=== PATIENT | female | born 1970 | race African-American/Black ===

== ENCOUNTER → 2016-06-26 | Outpatient (REF) | payer OTHER ==
[2016-06-28 00:08] LABS: %CD3+CD4+CD8+ 1.7 % (Not Estab.); %CD3+CD4-CD8+ 50.7 % (Not Estab.); %CD3+CD4-CD8- 3.1 % (Not Estab.); ABS CD3+CD4+CD8+ 49 /uL (Not Estab.); ABS CD3+CD4+CD8- 522 /uL (Not Estab.); ABS CD3+CD4-CD8+ 1470 /uL (Not Estab.); ABS CD3+CD4-CD8- 90 /uL (Not Estab.); CD4/CD8 NYSDOH RATIO 0.36 (Not Estab.); Eosinophils 2 % (.); HCT 34.4 % (34.0-46.6); Monocytes 9 % (.); Neutrophils 35 % (.); WBC 5.5 x10E3/uL (3.4-10.8)
== END ==
LOC: M SFHCPLAZ 10:38
PROVIDERS: ATTEND Internal Medicine Infectious Disease
DX: Z13.220 Encounter for screening for lipoid disorders (principal); B20 Human immunodeficiency virus [HIV] disease

== ENCOUNTER → 2016-12-11 | Outpatient (REF) | payer OTHER ==
[2016-12-11 14:16] LABS: ALBUMIN 3.7 GM/DL (3.2-5.2); ALBUMIN/GLOBULIN RATIO 1.09 (1.00-1.93); ALKALINE PHOSPHATASE 55 U/L (45-117); ALT/SGPT 15 U/L (12-78); ANION GAP 5 MEQ/L (8-16); AST/SGOT 7 U/L (15-37); BILIRUBIN,TOTAL 0.7 MG/DL (0.2-1.0); BLOOD UREA NITROGEN 11 MG/DL (7-18); CALCIUM LEVEL 9.1 MG/DL (8.5-10.1); CARBON DIOXIDE LEVEL 28 MEQ/L (21-32); CHLORIDE LEVEL 107 MEQ/L (98-107); CREATININE FOR GFR 1.08 MG/DL (0.55-1.02); GLOMERULAR FILTRATION RATE > 60.0 (>58); GLUCOSE, FASTING 87 MG/DL (70-105); POTASSIUM SERUM 4.3 MEQ/L (3.5-5.1); SODIUM LEVEL 140 MEQ/L (136-145); TOTAL PROTEIN 7.1 GM/DL (6.4-8.2)
[2016-12-12 14:14] LABS: %CD3+CD4+CD8+ 2.1 % (Not Estab.); %CD3+CD4+CD8- 21.2 % (Not Estab.); %CD3+CD4-CD8+ 47.4 % (Not Estab.); ABS CD3+CD4+CD8+ 61 /uL (Not Estab.); ABS CD3+CD4+CD8- 615 /uL (Not Estab.); ABS CD3+CD4-CD8+ 1375 /uL (Not Estab.); ABS CD3+CD4-CD8- 87 /uL (Not Estab.); CD4/CD8 NYSDOH RATIO 0.45 (Not Estab.); Eosinophils 2 % (.); Monocytes 10 % (.); Neutrophils 37 % (.); WBC 5.8 x10E3/uL (3.4-10.8)
== END ==
LOC: M SFHCPLAZ 10:27
PROVIDERS: ATTEND Internal Medicine Infectious Disease
DX: B20 Human immunodeficiency virus [HIV] disease (principal)

== ENCOUNTER → 2017-05-01 | Outpatient (REF) | payer OTHER ==
[2017-05-01 12:19] LABS: ALBUMIN 3.7 GM/DL (3.2-5.2); ALBUMIN/GLOBULIN RATIO 1.06 (1.00-1.93); ALKALINE PHOSPHATASE 46 U/L (45-117); ALT/SGPT 19 U/L (12-78); ANION GAP 8 MEQ/L (8-16); AST/SGOT 15 U/L (7-37); BILIRUBIN,TOTAL 0.3 MG/DL (0.2-1.0); BLOOD UREA NITROGEN 10 MG/DL (7-18); CALCIUM LEVEL 9.1 MG/DL (8.5-10.1); CARBON DIOXIDE LEVEL 26 MEQ/L (21-32); CHLORIDE LEVEL 109 MEQ/L (98-107); CHOLESTEROL LEVEL 223 MG/DL (<200); CREATININE FOR GFR 1.14 MG/DL (0.55-1.02); GLOMERULAR FILTRATION RATE > 60.0 (>58); GLUCOSE, FASTING 86 MG/DL (70-105); POTASSIUM SERUM 4.2 MEQ/L (3.5-5.1); SODIUM LEVEL 143 MEQ/L (136-145); TOTAL PROTEIN 7.2 GM/DL (6.4-8.2); TRIGLYCERIDES LEVEL 196 MG/DL (<150)
[2017-05-04 00:08] LABS: Eosinophils 2 % (Not Estab.); HCT 33.9 % (34.0-46.6); HGB 10.8 g/dL (11.1-15.9); Monocytes 10 % (Not Estab.); Neutrophils 46 % (Not Estab.)
== END ==
LOC: M SFHCPLAZ 09:14
PROVIDERS: ATTEND Internal Medicine Infectious Disease
DX: B20 Human immunodeficiency virus [HIV] disease (principal)

== ENCOUNTER → 2018-06-06 | Outpatient (REF) | payer OTHER ==
[2018-06-06 13:57] LABS: AMORPHOUS SEDIMENT SMALL (NEGATIVE); APPEARANCE, URINE CLEAR (CLEAR); BACTERIA, URINE AUTO NEGATIVE (NEGATIVE); BILIRUBIN, URINE AUTO NEGATIVE (NEGATIVE); BLOOD, URINE BLOOD 2+ (NEGATIVE); COLOR, URINE YELLOW (YELLOW); GLUCOSE, URINE (UA) AUTO NEGATIVE (NEGATIVE); KETONE, URINE AUTO NEGATIVE (NEGATIVE); LEUKOCYTE ESTERASE, URINE AUTO NEGATIVE (NEGATIVE); MUCUS, URINE SMALL (NEGATIVE); NITRITE, URINE AUTO NEGATIVE (NEGATIVE); PROTEIN, URINE AUTO NEGATIVE (NEGATIVE); RBC, URINE AUTO 12 /HPF (0-3); SPECIFIC GRAVITY URINE AUTO 1.014 (1.002-1.035); SQUAMOUS EPITHELIAL CELL UR AU 1 /HPF (0-6); UROBILINOGEN, URINE AUTO 0.2 mg/dL (0.0-2.0); WBC, URINE AUTO 1 /HPF (0-3)
[2018-06-06 14:34] LABS: ALBUMIN 3.9 GM/DL (3.2-5.2); ALT/SGPT 18 U/L (12-78); BILIRUBIN,TOTAL 0.8 MG/DL (0.2-1.0); BLOOD UREA NITROGEN 11 MG/DL (7-18); CALCIUM LEVEL 9.3 MG/DL (8.5-10.1); CARBON DIOXIDE LEVEL 26 MEQ/L (21-32); CHLORIDE LEVEL 105 MEQ/L (98-107); CHOLESTEROL LEVEL 232 MG/DL (<200); CHOLESTEROL RISK RATIO 2.829 (<5); CREATININE FOR GFR 1.12 MG/DL (0.55-1.30); GLOMERULAR FILTRATION RATE > 60.0 (>58); GLUCOSE, FASTING 85 MG/DL (70-100); HDL CHOLESTEROL 82 MG/DL (>40); IRON (FE) 24 UG/DL (50-170); LDL CHOLESTEROL 129 MG/DL (<100); NON-HDL-C 150 MG/DL; PERCENT SATURATION 5.5 % (13.2-45.0); POTASSIUM SERUM 4.2 MEQ/L (3.5-5.1); SODIUM LEVEL 139 MEQ/L (136-145); TOTAL IRON BINDING CAPACITY 436 UG/DL (250-450); TOTAL PROTEIN 7.5 GM/DL (6.4-8.2); TRIGLYCERIDES LEVEL 105 MG/DL (<150)
[2018-06-11 00:07] LABS: % CD8 Pos Lymph 47.7 % (12.0-35.5); ABS Eosinophils 0.1 x10E3/uL (0.0-0.4); ABS Lymphs 2.4 x10E3/uL (0.7-3.1); ABS Monocytes 0.4 x10E3/uL (0.1-0.9); ABS Neutophils 1.9 x10E3/uL (1.4-7.0); Abs CD4 Helper 600 /uL (359-1519); Abs CD8 Suppres 1145 /uL (109-897); CD4/CD8 Ratio 0.52 (0.92-3.72); Eosinophils 2 % (Not Estab.); HCT 29.8 % (34.0-46.6); HGB 8.9 g/dL (11.1-15.9); HIV-1 RNA PCR QUANT 2 LC550285 <20 copies/mL (.); Immature Grans 0 % (Not Estab.); Lymphocytes 51 % (Not Estab.); MCH 20.4 pg (26.6-33.0); MCHC 29.9 g/dL (31.5-35.7); MCV 68 fL (79-97); Monocytes 8 % (Not Estab.); Neutrophils 39 % (Not Estab.); Platelets 365 x10E3/uL (150-379); RBC 4.36 x10E6/uL (3.77-5.28); RDW 23.5 % (12.3-15.4); WBC 4.7 x10E3/uL (3.4-10.8)
== END ==
LOC: M SFHCPLAZ 12:16
PROVIDERS: ATTEND Internal Medicine Infectious Disease
DX: B20 Human immunodeficiency virus [HIV] disease (principal); N92.1 Excessive and frequent menstruation with irregular cycle; E78.00 Pure hypercholesterolemia, unspecified

== ENCOUNTER → 2018-11-26 | Outpatient (REF) | payer OTHER ==
[2018-11-26 13:41] LABS: ALBUMIN 3.8 GM/DL (3.2-5.2); ALT/SGPT 19 U/L (12-78); BILIRUBIN,TOTAL 0.7 MG/DL (0.2-1.0); BLOOD UREA NITROGEN 10 MG/DL (7-18); CARBON DIOXIDE LEVEL 29 MEQ/L (21-32); CHLORIDE LEVEL 108 MEQ/L (98-107); CREATININE FOR GFR 1.09 MG/DL (0.55-1.30); GLOMERULAR FILTRATION RATE > 60.0 (>58); GLUCOSE, FASTING 90 MG/DL (70-100); SODIUM LEVEL 142 MEQ/L (136-145); TOTAL PROTEIN 7.5 GM/DL (6.4-8.2)
[2018-11-29 00:11] LABS: % CD8 Pos Lymph 46.5 % (12.0-35.5); %CD4 Pos Lymphs 25.7 % (30.8-58.5); ABS Eosinophils 0.1 x10E3/uL (0.0-0.4); ABS Lymphs 2.6 x10E3/uL (0.7-3.1); ABS Monocytes 0.3 x10E3/uL (0.1-0.9); ABS Neutophils 1.6 x10E3/uL (1.4-7.0); Abs CD4 Helper 668 /uL (359-1519); Abs CD8 Suppres 1209 /uL (109-897); CD4/CD8 Ratio 0.55 (0.92-3.72); Eosinophils 3 % (Not Estab.); HIV-1 RNA PCR QUANT 2 LC550285 <20 copies/mL (.); Immature Grans 0 % (Not Estab.); Lymphocytes 56 % (Not Estab.); MCH 23.8 pg (26.6-33.0); MCHC 31.4 g/dL (31.5-35.7); MCV 76 fL (79-97); Monocytes 7 % (Not Estab.); Neutrophils 34 % (Not Estab.); Platelets 254 x10E3/uL (150-450); RBC 4.62 x10E6/uL (3.77-5.28); RDW 22.2 % (12.3-15.4); WBC 4.6 x10E3/uL (3.4-10.8)
== END ==
LOC: M SFHCPLAZ 11:05
PROVIDERS: ATTEND Internal Medicine Infectious Disease
DX: B20 Human immunodeficiency virus [HIV] disease (principal)

== ENCOUNTER → 2019-06-10 | Outpatient (REF) | payer OTHER ==
[2019-06-10 13:56] LABS: APPEARANCE, URINE CLOUDY (CLEAR); BACTERIA, URINE AUTO 2+ (NEGATIVE); BILIRUBIN, URINE AUTO NEGATIVE (NEGATIVE); BLOOD, URINE BLOOD 3+ (NEGATIVE); COLOR, URINE RED (YELLOW); GLUCOSE, URINE (UA) AUTO NEGATIVE (NEGATIVE); KETONE, URINE AUTO NEGATIVE (NEGATIVE); LEUKOCYTE ESTERASE, URINE AUTO NEGATIVE (NEGATIVE); NITRITE, URINE AUTO NEGATIVE (NEGATIVE); PROTEIN, URINE AUTO 2+ mg/dL (NEGATIVE); RBC, URINE AUTO TNTC /HPF (0-3); SPECIFIC GRAVITY URINE AUTO 1.028 (1.002-1.035); SQUAMOUS EPITHELIAL CELL UR AU 5 /HPF (0-6); UROBILINOGEN, URINE AUTO 0.2 mg/dL (0.0-2.0); WBC, URINE AUTO TNTC /HPF (0-3)
[2019-06-10 14:19] LABS: ALBUMIN 3.6 GM/DL (3.2-5.2); ALT/SGPT 16 U/L (12-78); BILIRUBIN,TOTAL 0.5 MG/DL (0.2-1.0); BLOOD UREA NITROGEN 11 MG/DL (7-18); CALCIUM LEVEL 9.3 MG/DL (8.5-10.1); CARBON DIOXIDE LEVEL 25 MEQ/L (21-32); CHLORIDE LEVEL 107 MEQ/L (98-107); CHOLESTEROL LEVEL 218 MG/DL (<200); CHOLESTEROL RISK RATIO 3.353 (<5); GLOMERULAR FILTRATION RATE > 60.0 (>58); GLUCOSE, FASTING 105 MG/DL (70-100); HDL CHOLESTEROL 65 MG/DL (>40); IRON (FE) 20 UG/DL (50-170); LDL CHOLESTEROL 108 MG/DL (<100); NON-HDL-C 153 MG/DL; PERCENT SATURATION 5.1 % (13.2-45.0); SODIUM LEVEL 140 MEQ/L (136-145); TOTAL IRON BINDING CAPACITY 394 UG/DL (250-450); TOTAL PROTEIN 6.8 GM/DL (6.4-8.2); TRIGLYCERIDES LEVEL 224 MG/DL (<150)
== END ==
LOC: M SFHCPLAZ 10:54
PROVIDERS: ATTEND Internal Medicine Infectious Disease
DX: B20 Human immunodeficiency virus [HIV] disease (principal); E78.00 Pure hypercholesterolemia, unspecified; D50.0 Iron deficiency anemia secondary to blood loss (chronic)

== ENCOUNTER → 2020-06-22 | Outpatient (REF) | payer OTHER ==
[2020-06-22 14:01] LABS: ALT/SGPT 23 U/L (12-78); BILIRUBIN,TOTAL 0.6 MG/DL (0.2-1.0); BLOOD UREA NITROGEN 11 MG/DL (7-18); CALCIUM LEVEL 10.1 MG/DL (8.5-10.1); CARBON DIOXIDE LEVEL 29 MEQ/L (21-32); CHLORIDE LEVEL 108 MEQ/L (98-107); CHOLESTEROL LEVEL 238 MG/DL (<200); CHOLESTEROL RISK RATIO 4.033 (<5); CREATININE FOR GFR 0.97 MG/DL (0.55-1.30); GLOMERULAR FILTRATION RATE > 60.0 (>51); GLUCOSE, FASTING 87 MG/DL (70-100); HDL CHOLESTEROL 59 MG/DL (>40); IRON (FE) 47 UG/DL (50-170); LDL CHOLESTEROL 160 MG/DL (<100); NON-HDL-C 179 MG/DL; PERCENT SATURATION 12.1 % (13.2-45.0); POTASSIUM SERUM 4.1 MEQ/L (3.5-5.1); SODIUM LEVEL 142 MEQ/L (136-145); TOTAL IRON BINDING CAPACITY 389 UG/DL (250-450); TOTAL PROTEIN 7.2 GM/DL (6.4-8.2); TRIGLYCERIDES LEVEL 97 MG/DL (<150)
[2020-06-25 03:07] LABS: %CD4 Pos Lymphs 24.3 % (30.8-58.5); ABS Eosinophils 0.1 x10E3/uL (0.0-0.4); ABS Lymphs 3.3 x10E3/uL (0.7-3.1); ABS Monocytes 0.8 x10E3/uL (0.1-0.9); ABS Neutophils 2.9 x10E3/uL (1.4-7.0); Abs CD4 Helper 802 /uL (359-1519); Abs CD8 Suppres 1518 /uL (109-897); CD4/CD8 Ratio 0.53 (0.92-3.72); Eosinophils 2 % (Not Estab.); HCT 37.3 % (34.0-46.6); HGB 11.8 g/dL (11.1-15.9); HIV-1 RNA PCR QUANT 2 LC550285 <20 copies/mL (.); Immature Grans 0 % (Not Estab.); Lymphocytes 47 % (Not Estab.); MCH 25.2 pg (26.6-33.0); MCHC 31.6 g/dL (31.5-35.7); MCV 80 fL (79-97); Monocytes 11 % (Not Estab.); Neutrophils 40 % (Not Estab.); Platelets 289 x10E3/uL (150-450); RBC 4.68 x10E6/uL (3.77-5.28); RDW 20.6 % (11.7-15.4); WBC 7.2 x10E3/uL (3.4-10.8)
== END ==
LOC: M SFHCPLAZ 11:18
PROVIDERS: ATTEND Internal Medicine Infectious Disease
DX: B20 Human immunodeficiency virus [HIV] disease (principal); D50.0 Iron deficiency anemia secondary to blood loss (chronic); E78.00 Pure hypercholesterolemia, unspecified

== ENCOUNTER → 2020-11-24 | Outpatient (CLI) | payer BC ==
--- NOTE | 2020-11-25 09:38 | REPMRS ---
Patient History The patient states she had a clinical breast exam in November 2020. Patient had first child at age 35. Family history of colorectal cancer in mother, colorectal cancer in maternal grandmother. Priors done at [facility]/calling for No breast complaints today Patient signed the MRS sheet 1st covid vaccine 07/27/20-left arm-Pfizer 2nd covid vaccine 08/17/20-left arm Patient Identification Verified Patient denied Digital Woman Screen Mammo: November 24, 2020 - Exam #: [id number] Bilateral CC and MLO view(s) were taken. Technologist: Evangelina Benson, Technologist Prior study comparison: March 19, 2019, bilateral digital mammo screening bilat, performed at [facility]. May 07, 2017, bilateral digital mammo screening bilat, performed at [facility]. December 14, 2015, bilateral digital mammo screening bilat, performed at [facility]. FINDINGS: There are scattered fibroglandular densities. The Volpara volumetric breast density category is:B. There has been no change in the appearance of the mammogram from the prior studies. There is a mild amount of scattered fibroglandular density which is fairly symmetric. There is no interval development of dominant mass, architectural distortion, or grouped microcalcification suggestive of malignancy. 3-D tomosynthesis shows no additional findings. Assessment: BI-RADS/ACR category 1 mammogram. Negative Mammogram. Recommendation Routine screening mammogram of both breasts in 1 year (for women over age 40). This patient's [facility] Lifetime Breast Cancer Risk is estimated at 13.1 %. This mammogram was interpreted with the aid of an FDA-approved computer-aided dectection system. Electronically Signed By: Scott Diaz MD 11/25/20 0938
== END ==
LOC: M WHC 14:29
PROVIDERS: ATTEND Nurse Practitioner Women's Health
DX: Z12.31 Encounter for screening mammogram for malignant neoplasm of breast (principal); Z80.0 Family history of malignant neoplasm of digestive organs

== ENCOUNTER → 2020-11-24 | Outpatient (REF) | payer BC | LOC: M SFHCWAGY 18:24 | PROVIDERS: ATTEND Nurse Practitioner Women's Health | DX: Z12.4 Encounter for screening for malignant neoplasm of cervix (principal) ==

== ENCOUNTER → 2020-11-29 | Outpatient (CLI) | payer BC, OTHER ==
[2020-11-29 16:04] LABS: HEMOGLOBIN A1c 6.1 %
[2020-11-29 16:12] LABS: ALBUMIN 4.1 GM/DL (3.2-5.2); ALT/SGPT 19 U/L (12-78); BILIRUBIN,TOTAL 0.7 MG/DL (0.2-1.0); BLOOD UREA NITROGEN 11 MG/DL (7-18); CALCIUM LEVEL 9.8 MG/DL (8.5-10.1); CARBON DIOXIDE LEVEL 28 MEQ/L (21-32); CHLORIDE LEVEL 109 MEQ/L (98-107); CREATININE FOR GFR 1.08 MG/DL (0.55-1.30); GLOMERULAR FILTRATION RATE > 60.0 (>51); GLUCOSE, FASTING 93 MG/DL (70-100); POTASSIUM SERUM 4.3 MEQ/L (3.5-5.1); SODIUM LEVEL 142 MEQ/L (136-145); TOTAL PROTEIN 7.4 GM/DL (6.4-8.2)
[2020-11-29 16:21] LABS: FOLATE 10.9 NG/ML; TOTAL 25(OH) VITAMIN D 11.7 NG/ML (30.0-100.0); VITAMIN B12 LEVEL 842 PG/ML
== END ==
LOC: M PLALAB 12:37
PROVIDERS: ATTEND Internal Medicine Infectious Disease
DX: B20 Human immunodeficiency virus [HIV] disease (principal); G62.9 Polyneuropathy, unspecified

== ENCOUNTER → 2021-05-24 | Outpatient (CLI) | payer BC, OTHER ==
[2021-05-24 15:36] LABS: HEMOGLOBIN A1c 5.9 %
[2021-05-24 15:55] LABS: ALT/SGPT 23 U/L (12-78); BILIRUBIN,TOTAL 0.6 MG/DL (0.2-1.0); BLOOD UREA NITROGEN 17 MG/DL (7-18); CALCIUM LEVEL 10.2 MG/DL (8.5-10.1); CARBON DIOXIDE LEVEL 27 MEQ/L (21-32); CHLORIDE LEVEL 110 MEQ/L (98-107); CREATININE FOR GFR 1.15 MG/DL (0.55-1.30); GLOMERULAR FILTRATION RATE > 60.0 (>51); GLUCOSE, FASTING 100 MG/DL (70-100); POTASSIUM SERUM 4.2 MEQ/L (3.5-5.1); SODIUM LEVEL 143 MEQ/L (136-145); TOTAL PROTEIN 7.2 GM/DL (6.4-8.2)
[2021-05-24 16:00] LABS: TOTAL 25(OH) VITAMIN D 15.6 NG/ML (30.0-100.0)
[2021-05-26 16:08] LABS: %CD4 Pos Lymphs 28.6 % (30.8-58.5); ABS Eosinophils 0.1 x10E3/uL (0.0-0.4); ABS Lymphs 2.9 x10E3/uL (0.7-3.1); ABS Monocytes 0.4 x10E3/uL (0.1-0.9); ABS Neutophils 2.5 x10E3/uL (1.4-7.0); Abs CD4 Helper 829 /uL (359-1519); Abs CD8 Suppres 1363 /uL (109-897); CD4/CD8 Ratio 0.61 (0.92-3.72); Eosinophils 2 % (Not Estab.); HCT 37.3 % (34.0-46.6); HGB 11.5 g/dL (11.1-15.9); HIV-1 RNA PCR QUANT 2 LC550285 20 copies/mL (.); HIV-1 RNA PCR QUANT 3 LC550285 1.301 (.); HSV TYPE I IgG SPECIFIC 5.77 index (0.00-0.90); HSV TYPE II IgG SPECIFIC >23.60 index (0.00-0.90); Immature Grans 0 % (Not Estab.); Lymphocytes 49 % (Not Estab.); MCH 24.6 pg (26.6-33.0); MCHC 30.8 g/dL (31.5-35.7); MCV 80 fL (79-97); Monocytes 6 % (Not Estab.); Neutrophils 42 % (Not Estab.); Platelets 310 x10E3/uL (150-450); RBC 4.68 x10E6/uL (3.77-5.28); WBC 5.9 x10E3/uL (3.4-10.8)
== END ==
LOC: M PLALAB 12:06
PROVIDERS: ATTEND Internal Medicine Infectious Disease
DX: E74.39 Other disorders of intestinal carbohydrate absorption (principal); E55.9 Vitamin D deficiency, unspecified; B20 Human immunodeficiency virus [HIV] disease

== ENCOUNTER → 2021-11-29 | Outpatient (CLI) | payer BC, OTHER | LOC: M PLALAB 11:48 | PROVIDERS: ATTEND Nurse Practitioner Family | DX: Z00.00 Encounter for general adult medical examination without abnormal findings (principal); E78.00 Pure hypercholesterolemia, unspecified; D50.0 Iron deficiency anemia secondary to blood loss (chronic); E55.9 Vitamin D deficiency, unspecified; Z53.9 Procedure and treatment not carried out, unspecified reason ==

== ENCOUNTER → 2021-11-29 | Outpatient (CLI) | payer BC, OTHER ==
[2021-12-01 04:07] LABS: % CD8 Pos Lymph 46.6 % (12.0-35.5); %CD4 Pos Lymphs 28.4 % (30.8-58.5); ABS Eosinophils 0.1 x10E3/uL (0.0-0.4); ABS Monocytes 0.4 x10E3/uL (0.1-0.9); ABS Neutophils 1.8 x10E3/uL (1.4-7.0); Abs CD4 Helper 852 /uL (359-1519); Abs CD8 Suppres 1398 /uL (109-897); CD4/CD8 Ratio 0.61 (0.92-3.72); Eosinophils 2 % (Not Estab.); HCT 38.9 % (34.0-46.6); HGB 12.1 g/dL (11.1-15.9); HIV-1 RNA PCR QUANT 2 LC550285 <20 copies/mL (.); Immature Grans 0 % (Not Estab.); Lymphocytes 56 % (Not Estab.); MCH 24.7 pg (26.6-33.0); MCHC 31.1 g/dL (31.5-35.7); MCV 80 fL (79-97); Monocytes 8 % (Not Estab.); Neutrophils 33 % (Not Estab.); Platelets 272 x10E3/uL (150-450); RBC 4.89 x10E6/uL (3.77-5.28); RDW 17.2 % (11.7-15.4); WBC 5.4 x10E3/uL (3.4-10.8)
== END ==
LOC: M PLALAB 11:47
PROVIDERS: ATTEND Internal Medicine Infectious Disease
DX: B20 Human immunodeficiency virus [HIV] disease (principal)

== ENCOUNTER 2022-02-21 07:27 | Day surgery (SDC) | payer BC, OTHER ==
[~2022-02-21] VITALS: Ht 177.8 cm; Wt 111.3 kg
[~2022-02-21 07:27] MED LIST: CABO6SUS IM; ERGO500029 PO; NS 1,000 ML IV ONE; RIZA10TA2 PO; ZOLO100T PO; ZOLP10TA2 PO
[2022-02-21] MEDS ORDERED: LIDOCAINE 2% 100MG/5ML SDV (FOR ANES.) As Ordered ONE (08:04)
[2022-02-21] MEDS ORDERED: propofoL 200 MG/20 ML VIAL As Ordered ONE ×2 (08:04→08:36)
[2022-02-21 09:05] VITALS: BP 124/68
== END 2022-02-21 09:23 | disposition home or self-care (01) ==
LOC: M OPP 07:27
PROVIDERS: ATTEND Internal Medicine Gastroenterology
DX: Z12.11 Encounter for screening for malignant neoplasm of colon (principal); Z80.0 Family history of malignant neoplasm of digestive organs; K63.5 Polyp of colon; K64.4 Residual hemorrhoidal skin tags; K64.8 Other hemorrhoids; Z79.899 Other long term (current) drug therapy; Z88.8 Allergy status to other drugs, medicaments and biological substances; Z87.891 Personal history of nicotine dependence; G43.909 Migraine, unspecified, not intractable, without status migrainosus; F32.9 Major depressive disorder, single episode, unspecified; B20 Human immunodeficiency virus [HIV] disease; G47.30 Sleep apnea, unspecified

== ENCOUNTER → 2022-04-25 | Outpatient (CLI) | payer BC, OTHER ==
[~2022-04-25] MED LIST changes: -NS 1,000 ML IV ONE
[2022-04-25 16:27] LABS: ALBUMIN 4.2 G/DL (3.2-5.2); ALT/SGPT 28 U/L (7.0-40); BLOOD UREA NITROGEN 20 MG/DL (9-23); CALCIUM LEVEL 9.9 MG/DL (8.5-10.1); CARBON DIOXIDE LEVEL 29 MMOL/L (20-31); CHLORIDE LEVEL 105 MMOL/L (98-107); GLOMERULAR FILTRATION RATE > 60.0 (>51); GLUCOSE, FASTING 94 MG/DL (60-100); POTASSIUM SERUM 4.7 MMOL/L (3.5-5.1); SODIUM LEVEL 142 MMOL/L (136-145); TOTAL PROTEIN 7.1 G/DL (5.7-8.2)
== END ==
LOC: M PLALAB 12:58
PROVIDERS: ATTEND Internal Medicine Infectious Disease
DX: M54.50 Low back pain, unspecified (principal)

== ENCOUNTER → 2022-08-14 | Outpatient (CLI) | payer BC, OTHER ==
[2022-08-14 14:50] LABS: ALKALINE PHOSPHATASE 61 U/L (46-116); ALT/SGPT 21 U/L (7.0-40); AST/SGOT 15 U/L (<34); BILIRUBIN,TOTAL 1.3 MG/DL (0.3-1.2); BLOOD UREA NITROGEN 15 MG/DL (9-23); CALCIUM LEVEL 10.2 MG/DL (8.5-10.1); CARBON DIOXIDE LEVEL 30 MMOL/L (20-31); CHLORIDE LEVEL 108 MMOL/L (98-107); CHOLESTEROL LEVEL 204 MG/DL (<200); CHOLESTEROL RISK RATIO 3.52 (<5); CREATININE FOR GFR 1.03 MG/DL (0.55-1.30); GLOMERULAR FILTRATION RATE > 60.0 (>51); GLUCOSE, FASTING 89 MG/DL (60-100); HDL CHOLESTEROL 57.8 MG/DL (>40); LDL CHOLESTEROL 124.4 MG/DL (<100); NON-HDL-C 146.2 MG/DL; POTASSIUM SERUM 4.3 MMOL/L (3.5-5.1); SODIUM LEVEL 142 MMOL/L (136-145); TOTAL PROTEIN 6.9 G/DL (5.7-8.2); TRIGLYCERIDES LEVEL 109 MG/DL (<150)
[2022-08-16 17:10] LABS: %CD4 Pos Lymphs 30.8 % (30.8-58.5); ABS Eosinophils 0.1 x10E3/uL (0.0-0.4); ABS Lymphs 2.6 x10E3/uL (0.7-3.1); ABS Monocytes 0.3 x10E3/uL (0.1-0.9); ABS Neutophils 1.3 x10E3/uL (1.4-7.0); Abs CD4 Helper 801 /uL (359-1519); Abs CD8 Suppres 1170 /uL (109-897); CD4/CD8 Ratio 0.68 (0.92-3.72); Eosinophils 3 % (Not Estab.); HCT 40.2 % (34.0-46.6); HGB 12.8 g/dL (11.1-15.9); HIV-1 RNA PCR QUANT 2 LC550285 50 copies/mL (.); HIV-1 RNA PCR QUANT 3 LC550285 1.699 (.); HSV TYPE I IgG SPECIFIC 7.04 index (0.00-0.90); HSV TYPE II IgG SPECIFIC >23.60 index (0.00-0.90); Immature Grans 0 % (Not Estab.); Lymphocytes 59 % (Not Estab.); MCH 25.7 pg (26.6-33.0); MCHC 31.8 g/dL (31.5-35.7); MCV 81 fL (79-97); Monocytes 7 % (Not Estab.); Neutrophils 30 % (Not Estab.); Platelets 303 x10E3/uL (150-450); RBC 4.98 x10E6/uL (3.77-5.28); RDW 15.4 % (11.7-15.4); WBC 4.5 x10E3/uL (3.4-10.8)
== END ==
LOC: M PLALAB 11:46
PROVIDERS: ATTEND Internal Medicine Infectious Disease
DX: B20 Human immunodeficiency virus [HIV] disease (principal); E78.00 Pure hypercholesterolemia, unspecified

== ENCOUNTER → 2022-10-09 | Outpatient (REF) | payer OTHER, BC | LOC: M SFHCWAGY 12:47 | PROVIDERS: ATTEND Nurse Practitioner Family | DX: N73.9 Female pelvic inflammatory disease, unspecified (principal) ==

== ENCOUNTER → 2022-11-28 | Outpatient (CLI) | payer BC, OTHER ==
[2022-11-28 14:51] LABS: HEPATITIS B SURFACE ANTIGEN NEGATIVE (NEGATIVE)
[2022-11-28 15:12] LABS: HEPATITIS B CORE ANTIBODY IGM NEGATIVE (NEGATIVE); HEPATITIS C VIRUS ABY INDEX 0.09 INDEX (<0.8)
[2022-11-28 16:29] LABS: GC DNA AMPLIFICATION NEGATIVE (NEGATIVE)
== END ==
LOC: M PLALAB 11:55
PROVIDERS: ATTEND Nurse Practitioner Family
DX: Z12.4 Encounter for screening for malignant neoplasm of cervix (principal); Z11.3 Encounter for screening for infections with a predominantly sexual mode of transmission
CPT/HCPCS: 36415; 86705; 86780; 86803; 87340; 87661; 87810; 87850; G0123

== ENCOUNTER → 2022-11-28 | Outpatient (CLI) | payer BC, OTHER | LOC: M WHC 09:48 | PROVIDERS: ATTEND Nurse Practitioner Family | DX: Z12.31 Encounter for screening mammogram for malignant neoplasm of breast (principal) ==

== ENCOUNTER → 2023-03-12 | Outpatient (CLI) | payer OTHER, BC ==
[2023-03-12 14:16] LABS: HEMOGLOBIN A1c 5.3 % (4.0-6.0)
[2023-03-12 14:22] LABS: TOTAL 25(OH) VITAMIN D 51.2 NG/ML (20.0-100.0)
[2023-03-12 14:23] LABS: ALBUMIN 3.8 G/DL (3.2-5.2); ALKALINE PHOSPHATASE 60 U/L (46-116); ALT/SGPT 31 U/L (7.0-40); AST/SGOT 13 U/L (<34); BILIRUBIN,TOTAL 1.1 MG/DL (0.3-1.2); BLOOD UREA NITROGEN 13 MG/DL (9-23); CALCIUM LEVEL 9.8 MG/DL (8.5-10.1); CARBON DIOXIDE LEVEL 31 MMOL/L (20-31); CHLORIDE LEVEL 110 MMOL/L (98-107); CHOLESTEROL LEVEL 225 MG/DL (<200); CHOLESTEROL RISK RATIO 3.89 (<5); CREATININE FOR GFR 0.96 MG/DL (0.55-1.30); GLOMERULAR FILTRATION RATE > 60.0 (>51); GLUCOSE, FASTING 93 MG/DL (60-100); HDL CHOLESTEROL 57.8 MG/DL (>40); LDL CHOLESTEROL 144.6 MG/DL (<100); NON-HDL-C 167.2 MG/DL; POTASSIUM SERUM 4.4 MMOL/L (3.5-5.1); SODIUM LEVEL 145 MMOL/L (136-145); TOTAL PROTEIN 6.8 G/DL (5.7-8.2); TRIGLYCERIDES LEVEL 113 MG/DL (<150)
[2023-03-13 20:09] LABS: % CD8 Pos Lymph 42.9 % (12.0-35.5); %CD4 Pos Lymphs 29.4 % (30.8-58.5); ABS Eosinophils 0.1 x10E3/uL (0.0-0.4); ABS Lymphs 3.1 x10E3/uL (0.7-3.1); ABS Monocytes 0.6 x10E3/uL (0.1-0.9); ABS Neutophils 2.1 x10E3/uL (1.4-7.0); Abs CD4 Helper 911 /uL (359-1519); Abs CD8 Suppres 1330 /uL (109-897); CD4/CD8 Ratio 0.69 (0.92-3.72); Eosinophils 2 % (Not Estab.); HCT 40.4 % (34.0-46.6); HGB 12.7 g/dL (11.1-15.9); HIV-1 RNA PCR QUANT 2 LC550285 <20 copies/mL (.); Immature Grans 0 % (Not Estab.); Lymphocytes 52 % (Not Estab.); MCHC 31.4 g/dL (31.5-35.7); MCV 83 fL (79-97); Monocytes 10 % (Not Estab.); Neutrophils 35 % (Not Estab.); Platelets 283 x10E3/uL (150-450); RBC 4.89 x10E6/uL (3.77-5.28); RDW 15.7 % (11.7-15.4); WBC 5.9 x10E3/uL (3.4-10.8)
== END ==
LOC: M PLALAB 09:32
PROVIDERS: ATTEND Internal Medicine Infectious Disease
DX: B20 Human immunodeficiency virus [HIV] disease (principal); E55.9 Vitamin D deficiency, unspecified; E78.00 Pure hypercholesterolemia, unspecified; E74.39 Other disorders of intestinal carbohydrate absorption

== ENCOUNTER → 2023-06-18 | Outpatient (CLI) | payer OTHER, BC ==
[2023-06-19 16:11] LABS: % CD8 Pos Lymph 44.9 % (12.0-35.5); %CD4 Pos Lymphs 25.5 % (30.8-58.5); ABS Eosinophils 0.1 x10E3/uL (0.0-0.4); ABS Lymphs 3.4 x10E3/uL (0.7-3.1); ABS Monocytes 0.6 x10E3/uL (0.1-0.9); ABS Neutophils 2.5 x10E3/uL (1.4-7.0); Abs CD4 Helper 867 /uL (359-1519); Abs CD8 Suppres 1527 /uL (109-897); CD4/CD8 Ratio 0.57 (0.92-3.72); Eosinophils 2 % (Not Estab.); HCT 40.6 % (34.0-46.6); HGB 12.9 g/dL (11.1-15.9); HIV-1 RNA PCR QUANT 2 LC550285 30 copies/mL (.); HIV-1 RNA PCR QUANT 3 LC550285 1.477 (.); Immature Grans 0 % (Not Estab.); Lymphocytes 50 % (Not Estab.); MCH 25.9 pg (26.6-33.0); MCHC 31.8 g/dL (31.5-35.7); MCV 82 fL (79-97); Monocytes 10 % (Not Estab.); Neutrophils 37 % (Not Estab.); Platelets 265 x10E3/uL (150-450); RBC 4.98 x10E6/uL (3.77-5.28); RDW 15.5 % (11.7-15.4); WBC 6.7 x10E3/uL (3.4-10.8)
== END ==
LOC: M PLALAB 10:21
PROVIDERS: ATTEND Internal Medicine Infectious Disease
DX: B20 Human immunodeficiency virus [HIV] disease (principal)

== ENCOUNTER → 2023-08-06 | Outpatient (CLI) | payer BC, OTHER ==
[2023-08-06 14:03] LABS: HEMATOCRIT 40.7 % (36.0-47.0); MEAN CORPUSCULAR HEMOGLOBIN 26.1 pg (27.0-33.0); MEAN CORPUSCULAR HGB CONC 31.9 g/dl (32.0-36.5); MEAN CORPUSCULAR VOLUME 81.7 fl (80.0-96.0); PLATELET COUNT, AUTOMATED 308 10^3/uL (150-450); RED BLOOD COUNT 4.98 10^6/uL (4.00-5.40); WHITE BLOOD COUNT 6.3 10^3/uL (4.0-10.0)
[2023-08-06 14:17] LABS: ERYTHROCYTE SEDIMENTATION RATE 31 mm/hr (0-30)
[2023-08-06 14:24] LABS: C REACTIVE PROTEIN QUANTITATIV < 0.40 MG/DL (<1.0)
[2023-08-06 14:26] LABS: ALBUMIN 3.8 G/DL (3.2-5.2); ALKALINE PHOSPHATASE 65 U/L (46-116); ALT/SGPT 27 U/L (7.0-40); AST/SGOT 12 U/L (<34); BILIRUBIN,TOTAL 1.1 MG/DL (0.3-1.2); BLOOD UREA NITROGEN 10 MG/DL (9-23); CALCIUM LEVEL 9.2 MG/DL (8.5-10.1); CARBON DIOXIDE LEVEL 31 MMOL/L (20-31); CHLORIDE LEVEL 105 MMOL/L (98-107); CREATININE FOR GFR 0.87 MG/DL (0.55-1.30); GLOMERULAR FILTRATION RATE > 60.0 (>51); GLUCOSE, FASTING 87 MG/DL (60-100); POTASSIUM SERUM 3.9 MMOL/L (3.5-5.1); SODIUM LEVEL 141 MMOL/L (136-145); TOTAL PROTEIN 6.9 G/DL (5.7-8.2)
[2023-08-13 11:13] LABS: HLA-B27 Negative (.)
== END ==
LOC: M RAD 12:51
PROVIDERS: ATTEND Internal Medicine Infectious Disease
DX: B34.9 Viral infection, unspecified (principal); R51.9 Headache, unspecified; H53.8 Other visual disturbances; B20 Human immunodeficiency virus [HIV] disease

== ENCOUNTER → 2023-12-04 | Outpatient (REF) | payer BC ==
[2023-12-07 07:08] LABS: HPV APTIMA Not Detected (Not Detected)
== END ==
LOC: M SFHCWAGY 12:38
PROVIDERS: ATTEND Nurse Practitioner Family
DX: Z12.4 Encounter for screening for malignant neoplasm of cervix (principal); N95.0 Postmenopausal bleeding
CPT/HCPCS: 87070; 87624; G0123

== ENCOUNTER → 2023-12-04 | Outpatient (CLI) | payer BC, OTHER | LOC: M WHC 10:17 | PROVIDERS: ATTEND Nurse Practitioner Family | DX: Z12.31 Encounter for screening mammogram for malignant neoplasm of breast (principal); R92.323 Mammographic fibroglandular density, bilateral breasts ==

== ENCOUNTER → 2023-12-31 | Outpatient (CLI) | payer OTHER, BC ==
[2023-12-31 11:32] LABS: BASO % 0.6 % (0.0-1.0); EOS # 0.1 10^3/uL (0.0-0.5); EOS % 2.1 % (0.0-3.0); HEMATOCRIT 39.8 % (36.0-47.0); HEMOGLOBIN 12.5 g/dl (12.0-15.5); LYMPH # 2.8 10^3/uL (1.5-5.0); LYMPH % 52.5 % (24.0-44.0); MEAN CORPUSCULAR HEMOGLOBIN 26.2 pg (27.0-33.0); MEAN CORPUSCULAR HGB CONC 31.4 g/dl (32.0-36.5); MEAN CORPUSCULAR VOLUME 83.3 fl (80.0-96.0); MONO # 0.5 10^3/uL (0.0-0.8); MONO % 10.2 % (2.0-8.0); NEUTROPHILS # 1.8 10^3/uL (1.5-8.5); NEUTROPHILS % 34.6 % (36.0-66.0); PLATELET COUNT, AUTOMATED 256 10^3/uL (150-450); RED BLOOD COUNT 4.78 10^6/uL (4.00-5.40); WHITE BLOOD COUNT 5.3 10^3/uL (4.0-10.0)
[2023-12-31 11:41] LABS: HEMOGLOBIN A1c 5.8 % (4.0-6.0)
[2023-12-31 12:05] LABS: FERRITIN 84.4 NG/ML (7.3-270.7); THYROID STIMULATING HORMONE 1.424 uIU/ML (0.55-4.78); TOTAL 25(OH) VITAMIN D 50.2 NG/ML (20.0-100.0); TOTAL IRON BINDING CAPACITY 282 UG/DL (250-425)
[2023-12-31 12:07] LABS: ALBUMIN 3.9 G/DL (3.2-5.2); ALKALINE PHOSPHATASE 53 U/L (46-116); ALT/SGPT 20 U/L (7.0-40); AST/SGOT < 8 U/L (<34); BILIRUBIN,TOTAL 1.2 MG/DL (0.3-1.2); BLOOD UREA NITROGEN 16 MG/DL (9-23); CALCIUM LEVEL 9.9 MG/DL (8.5-10.1); CARBON DIOXIDE LEVEL 29 MMOL/L (20-31); CHLORIDE LEVEL 110 MMOL/L (98-107); CHOLESTEROL LEVEL 213 MG/DL (<200); CREATININE FOR GFR 1.14 MG/DL (0.55-1.30); GLOMERULAR FILTRATION RATE > 60.0 (>51); GLUCOSE, FASTING 76 MG/DL (60-100); HDL CHOLESTEROL 50.7 MG/DL (>40); IRON (FE) 65 UG/DL (50-170); LDL CHOLESTEROL 143.5 MG/DL (<100); NON-HDL-C 162.3 MG/DL; POTASSIUM SERUM 4.3 MMOL/L (3.5-5.1); SODIUM LEVEL 142 MMOL/L (136-145); TOTAL PROTEIN 6.7 G/DL (5.7-8.2); TRIGLYCERIDES LEVEL 94 MG/DL (<150)
== END ==
LOC: M PLALAB 09:17
PROVIDERS: ATTEND Nurse Practitioner Family
DX: B20 Human immunodeficiency virus [HIV] disease (principal); D50.0 Iron deficiency anemia secondary to blood loss (chronic); E55.9 Vitamin D deficiency, unspecified; E78.00 Pure hypercholesterolemia, unspecified; R73.01 Impaired fasting glucose; R53.83 Other fatigue

== ENCOUNTER → 2023-12-31 | Outpatient (CLI) | payer OTHER, BC ==
[2024-01-01 14:09] LABS: % CD4+ LYMPHS 29.3 % (30.8-58.5); ABSOLUTE CD4 HELPER 850 /uL (359-1519); BASOPHILS 0 % (Not Estab.); EOSINOPHILS 2 % (Not Estab.); EOSINOPHILS ABSOLUTE 0.1 x10E3/uL (0.0-0.4); HCT 39.3 % (34.0-46.6); HGB 12.7 g/dL (11.1-15.9); LYMPHOCYTES 53 % (Not Estab.); LYMPHOCYTES ABSOLUTE 2.9 x10E3/uL (0.7-3.1); MCH 26.6 pg (26.6-33.0); MCHC 32.3 g/dL (31.5-35.7); MCV 82 fL (79-97); MONOCYTES 10 % (Not Estab.); MONOCYTES ABSOLUTE 0.6 x10E3/uL (0.1-0.9); NEUTROPHILS 35 % (Not Estab.); PLT 246 x10E3/uL (150-450); RBC 4.78 x10E6/uL (3.77-5.28); RDW 15.6 % (11.7-15.4); WBC 5.5 x10E3/uL (3.4-10.8)
== END ==
LOC: M PLALAB 09:20
PROVIDERS: ATTEND Internal Medicine Infectious Disease
DX: B20 Human immunodeficiency virus [HIV] disease (principal)

== ENCOUNTER → 2024-07-18 | Outpatient (REF) | payer OTHER, BC ==
[2024-07-22 00:09] LABS: AMPHETAMINE SCREEN, URINE Negative ng/mL (Cutoff=1000); BARBITURATES SCREEN, URINE Negative ng/mL (Cutoff=200); BENZODIAZEPINES, URINE SCREEN Negative ng/mL (Cutoff=200); CANNABINOID SCREEN, URINE Negative ng/mL (Cutoff=20); COCAINE SCREEN, URINE Negative ng/mL (Cutoff=300); CREATININE, URINE 106.6 mg/dL (20.0-300.0); METHADONE, URINE SCREEN Negative ng/mL (Cutoff=300); OPIATE SCREEN, URINE Negative ng/mL (Cutoff=300); OXYCODONE, SCREEN, URINE Negative ng/mL (Cutoff=100); PCP SCREEN, URINE Negative ng/mL (Cutoff=25); SPECIFIC GRAVITY, URINE 1.021 (.); pH, URINE 7.8 (4.5-8.9)
== END ==
LOC: M SFHCPLAZ 12:22
PROVIDERS: ATTEND Nurse Practitioner Family
DX: F51.01 Primary insomnia (principal)

== ENCOUNTER → 2024-08-07 | Outpatient (CLI) | payer OTHER, BC ==
[2024-08-08 12:07] LABS: % CD4+ LYMPHS 30.4 % (30.8-58.5); ABSOLUTE CD4 HELPER 882 /uL (359-1519); BASOPHILS 1 % (Not Estab.); EOSINOPHILS 2 % (Not Estab.); EOSINOPHILS ABSOLUTE 0.1 x10E3/uL (0.0-0.4); HCT 38.9 % (34.0-46.6); HGB 12.7 g/dL (11.1-15.9); Immature Grans 0 % (Not Estab.); LYMPHOCYTES 51 % (Not Estab.); LYMPHOCYTES ABSOLUTE 2.9 x10E3/uL (0.7-3.1); MCH 26.6 pg (26.6-33.0); MCHC 32.6 g/dL (31.5-35.7); MCV 82 fL (79-97); MONOCYTES 10 % (Not Estab.); MONOCYTES ABSOLUTE 0.6 x10E3/uL (0.1-0.9); NEUTROPHILS 36 % (Not Estab.); PLT 298 x10E3/uL (150-450); RBC 4.77 x10E6/uL (3.77-5.28); RDW 15.5 % (11.7-15.4); WBC 5.5 x10E3/uL (3.4-10.8)
[2024-08-12 11:21] LABS: HIV-1 RNA PCR QUANT 2 NOT DETECTED copies/mL (NOT DETECTED); HIV-1 RNA PCR QUANT 3 NOT DETECTED (NOT DETECTED)
== END ==
LOC: M PLALAB 11:03
PROVIDERS: ATTEND Internal Medicine Infectious Disease
DX: B20 Human immunodeficiency virus [HIV] disease (principal)

== ENCOUNTER → 2024-08-07 | Outpatient (CLI) | payer OTHER, BC ==
[2024-08-07 14:40] LABS: ALBUMIN 3.8 G/DL (3.2-5.2); ALKALINE PHOSPHATASE 59 U/L (35-104); ALT/SGPT 29 U/L (7.0-40); AST/SGOT 13 U/L (<34); BILIRUBIN,TOTAL 1.1 MG/DL (0.3-1.2); BLOOD UREA NITROGEN 9 MG/DL (9-23); CARBON DIOXIDE LEVEL 27 MMOL/L (20-31); CHLORIDE LEVEL 110 MMOL/L (98-107); CHOLESTEROL LEVEL 228 MG/DL (<200); CHOLESTEROL RISK RATIO 3.18 (<5); CREATININE FOR GFR 0.84 MG/DL (0.55-1.30); FREE T4 1.19 NG/DL (0.89-1.76); GLOMERULAR FILTRATION RATE > 60.0 (>51); GLUCOSE, FASTING 101 MG/DL (60-100); HDL CHOLESTEROL 71.6 MG/DL (>40); LDL CHOLESTEROL 124.6 MG/DL (<100); NON-HDL-C 156.4 MG/DL; POTASSIUM SERUM 4.1 MMOL/L (3.5-5.1); SODIUM LEVEL 144 MMOL/L (136-145); THYROID STIMULATING HORMONE 1.879 uIU/ML (0.55-4.78); TOTAL PROTEIN 7.1 G/DL (5.7-8.2); TRIGLYCERIDES LEVEL 159 MG/DL (<150)
[2024-08-07 14:42] LABS: BASO % 0.4 % (0.0-1.0); EOS # 0.1 10^3/uL (0.0-0.5); EOS % 1.5 % (0.0-3.0); HEMATOCRIT 39.6 % (36.0-47.0); HEMOGLOBIN 12.6 g/dl (12.0-15.5); LYMPH % 53.7 % (24.0-44.0); MEAN CORPUSCULAR HEMOGLOBIN 26.5 pg (27.0-33.0); MEAN CORPUSCULAR HGB CONC 31.8 g/dl (32.0-36.5); MEAN CORPUSCULAR VOLUME 83.2 fl (80.0-96.0); MONO # 0.5 10^3/uL (0.0-0.8); MONO % 9.7 % (2.0-8.0); NEUTROPHILS # 1.9 10^3/uL (1.5-8.5); NEUTROPHILS % 34.5 % (36.0-66.0); PLATELET COUNT, AUTOMATED 284 10^3/uL (150-450); RED BLOOD COUNT 4.76 10^6/uL (4.00-5.40); WHITE BLOOD COUNT 5.5 10^3/uL (4.0-10.0)
[2024-08-08 14:52] LABS: HEMOGLOBIN A1c 5.5 % (4.0-6.0)
== END ==
LOC: M PLALAB 11:06
PROVIDERS: ATTEND Nurse Practitioner Family
DX: R53.83 Other fatigue (principal)

== ENCOUNTER → 2025-02-23 | Outpatient (REF) | payer OTHER, BC ==
[~2025-02-23] MED LIST changes: +ZOLP10TA11 PO; -ZOLP10TA2 PO
== END ==
LOC: M SFHCWAGY 10:02
PROVIDERS: ATTEND Nurse Practitioner Family
DX: Z12.4 Encounter for screening for malignant neoplasm of cervix (principal); N95.0 Postmenopausal bleeding; Z77.9 Other contact with and (suspected) exposures hazardous to health
CPT/HCPCS: 87070; G0123

== ENCOUNTER → 2025-02-23 | Outpatient (CLI) | payer BC | LOC: M WHC 12:12 | PROVIDERS: ATTEND Nurse Practitioner Family | DX: N95.0 Postmenopausal bleeding (principal); N88.8 Other specified noninflammatory disorders of cervix uteri; D25.9 Leiomyoma of uterus, unspecified ==

== ENCOUNTER → 2025-02-23 | Outpatient (CLI) | payer BC | LOC: M WHC 08:30 | PROVIDERS: ATTEND Nurse Practitioner Family | DX: Z12.31 Encounter for screening mammogram for malignant neoplasm of breast (principal); R92.323 Mammographic fibroglandular density, bilateral breasts ==

== ENCOUNTER 2025-04-15 13:25 | Day surgery (SDC) | payer BC ==
[~2025-04-15] VITALS: Ht 177.8 cm; Wt 110.5 kg
[~2025-04-15 13:25] MED LIST changes: +ACYC-438 PO; +TIRZ5VIA SQ
[2025-04-15] MEDS ORDERED: LIDOCAINE 2% 100 MG/5 ML SDV (FOR ANES.) As Ordered ONE (14:39)
[2025-04-15] MEDS ORDERED: dexAMETHasone 4 MG/ML 1 ML VIAL As Ordered ONE (14:39)
[2025-04-15] MEDS ORDERED: KETOROLAC 30 MG/ML 1 ML VIAL As Ordered ONE (14:40)
[2025-04-15] MEDS ORDERED: ONDANSETRON 4MG/2ML VIAL As Ordered ONE (14:40)
[2025-04-15] MEDS ORDERED: MIDAZOLAM INJ 2 MG/2 ML VIAL As Ordered ONE (14:57)
[2025-04-15] MEDS ORDERED: ACETAMINOPHEN 1000MG/100ML IV BAG As Ordered ONE (14:58)
[2025-04-15] MEDS ORDERED: dexmedeTOMIDine (4 MCG/ML) 200 MCG/50 ML BTL As Ordered ONE (14:59)
[2025-04-15] MEDS ORDERED: ROCURONIUM BROMIDE 50MG/5ML VIAL As Ordered ONE (16:13)
[2025-04-15] MEDS ORDERED: LACRILUBE (AKWA TEARS) OPHTH OINT 3.5 GM As Ordered ONE (16:52)
[2025-04-15] MEDS ORDERED: SUGAMMADEX SODIUM 200 MG/2 ML VIAL As Ordered ONE (17:01)
[2025-04-15] MEDS: SILVER NITRATE APPLICATOR (1 = QTY 10) As Ordered ONE (17:19)
[2025-04-15] MEDS ORDERED: HYDROMORPHONE HCL 0.5 MG/0.5 ML SYRINGE IV PRN (17:35)
[2025-04-15] MEDS ORDERED: MORPHINE 2 MG/ML 1 ML VIAL IV PRN (17:35)
[2025-04-15 18:15] VITALS: BP 144/72; TEMP 97.2; O2SAT 98
== END 2025-04-15 18:30 | disposition home or self-care (01) ==
LOC: M SDC 13:25
PROVIDERS: ATTEND Student in an Organized Health Care Education/Training Program
DX: N95.0 Postmenopausal bleeding (principal); N84.0 Polyp of corpus uteri; G43.909 Migraine, unspecified, not intractable, without status migrainosus; G47.33 Obstructive sleep apnea (adult) (pediatric); F32.A Depression, unspecified; Z79.899 Other long term (current) drug therapy; Z88.8 Allergy status to other drugs, medicaments and biological substances; B20 Human immunodeficiency virus [HIV] disease
CPT/HCPCS: 58558; 88305; 93005; J0131; J1100; J1885; J2250; J2405; J3010